=== PATIENT | male | born 1975 | race African-American/Black ===

== ENCOUNTER 2017-04-17 05:25 | Emergency (ER) | payer OTHER ==
[~2017-04-17] VITALS: Ht 188 cm; Wt 99.0 kg
[2017-04-17 05:29] VITALS: BP 173/102; PULSE 102; RESP 16; TEMP 97.7; O2SAT 99
[2017-04-17] MEDS ORDERED: SODIUM CHLOR 0.9% 1000 ML INJ 1,000 ML IV ONE ×3 (05:58→09:15)
[2017-04-17] MEDS ORDERED: SODIUM CHLORIDE 0.9% FLUSH 10 ML FLUSH IVF PRN (06:00)
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
[2017-04-17 06:23] VITALS: O2SAT 98
[2017-04-17 06:28] LABS: AUTOMATED NEUTROPHIL # 3.6 TH/MM3 (1.8-7.7); BASOPHIL # 0.1 TH/MM3 (0-0.2); BASOPHIL % 1.1 % (0.0-2.0); EOSINOPHIL # 0.2 TH/MM3 (0-0.4); EOSINOPHIL % 2.9 % (0.0-4.0); HEMO FLAGS DIFF FINAL; LYMPH % 38.6 % (9.0-44.0); LYMPHOCYTE # 2.7 TH/MM3 (1.0-4.8); MEAN CELL VOLUME 76.1 FL (80.0-100.0); MEAN CORPUSCULAR HEMOGLOBIN 27.1 PG (27.0-34.0); MEAN CORPUSCULAR HGB CONC 35.5 % (32.0-36.0); MONO % 6.6 % (0.0-8.0); NEUT % 50.8 % (16.0-70.0); PLATELET COUNT 140 TH/MM3 (150-450); RED BLOOD COUNT 6.04 MIL/MM3 (4.50-5.90); RED CELL DISTRIBUTION WIDTH 14.6 % (11.6-17.2)
[2017-04-17 06:30] LABS: BLOOD GAS VENOUS BASE EXCESS 3.3 mmol/L (-2-2); BLOOD GAS VENOUS HCO3 28 mmol/L (22-26); BLOOD GAS VENOUS O2 CONTENT 8.9 Vol % (9.0-17.0); BLOOD GAS VENOUS O2 HGB SAT 37 % (70-76); BLOOD GAS VENOUS PCO2 48 mmHg (44-48); BLOOD GAS VENOUS PO2 24 mmHg (35-40); BLOOD GAS VENOUS pH 7.38 (7.360-7.400); TEMP CORR TO 98.6
[2017-04-17 06:31] LABS: CRITICAL VALUE YES; FIO2 21 %; OXYGEN DEVICE ROOM AIR; STAT YES
[2017-04-17] MEDS ORDERED: METF1000 PO (06:45)
[2017-04-17 06:55] LABS: ALT (GPT) 59 U/L (12-78); ANION GAP 8 MEQ/L (5-15); AST (GOT) 24 U/L (15-37); BICARBONATE 28.1 MEQ/L (21.0-32.0); BLOOD UREA NITROGEN 18 MG/DL (7-18); CHLORIDE 100 MEQ/L (98-107); GLOMERULAR FILTRATION RATE 58 ML/MIN (>89); POTASSIUM 3.9 MEQ/L (3.5-5.1); SODIUM (NA) 136 MEQ/L (136-145)
[2017-04-17 06:57] LABS: ALKALINE PHOSPHATASE 122 U/L (45-117); BETA-HYDROXYBUTYRATE 1.19 MMOL/L (0.00-0.39); TOTAL BILIRUBIN ADULT 0.5 MG/DL (0.2-1.0)
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
[2017-04-17 08:34] LABS: BLOOD, URINE NEG (NEG); GLUCOSE,URINE 1000 mg/dL (NEG); KETONE, URINE 40 mg/dL (NEG); NITRITE,URINE NEG (NEG); URINE COLOR YELLOW (YELLW/STRAW)
[2017-04-17 08:35] LABS: COMMENT (UR) CULT NOT INDICATED; CULTURE IF INDICATED CULT NOT INDICATED
[2017-04-17] MEDS ORDERED: INSULIN ASPART 1,000 UNITS/10 ML VIAL SQ ONE (09:15)
[2017-04-17] MEDS ORDERED: metFORMIN HCL 500 MG TAB PO ONE (09:15)
[2017-04-17 09:33] VITALS: BP 151/96; PULSE 80; RESP 14; O2SAT 99
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
== END 2017-04-17 10:44 | disposition home or self-care (01) ==
LOC: NEPC 05:25
DX: E11.9 Type 2 diabetes mellitus without complications (principal); R07.89 Other chest pain; R35.8 Other polyuria; R63.2 Polyphagia; V49.49XA Driver injured in collision with other motor vehicles in traffic accident, initial encounter; Y92.410 Unspecified street and highway as the place of occurrence of the external cause
CPT/HCPCS: 71020; 80053; 81001; 82010; 82805; 85025; 96360; 96361; 96372; 99285; J1815; J7030